=== PATIENT | male | born 2000 | race Caucasian/White ===

== ENCOUNTER 2025-09-20 13:37 | Outpatient (AMB) | payer BC, OTHER, SELFPAY ==
--- NOTE | 2025-09-20 13:38 | AM.OFFWIN_ITS ---
Intake Vital Signs 09/20/25 13:39 Height 5 ft 11 in Weight 181 lb BMI 25.2 BP 120/58 L Blood Pressure Location Lt brachial Position Sitting Pulse 71 Pulse Source Pulse Oximeter Temp 98.1 F Temp Source Oral Pulse Oximetry (%) 98 Oxygen Delivery Method Room Air Intake Visit Reasons: [employer] toe infection?? Intake Note: pt presents with left great toe pain, swelling and redness x4 days Allergies No Known Allergies Allergy (Verified 09/20/25 13:41) Do you need a note to return to daycare/school/sports/work: No HPI HPI Comments History of Present Illness Details History of Present Illness - The patient is a 24 year old individua l presenting with an infected right great toe. - The patient reports cutting a toenail too short and subsequently digging at it, which led to the development of a tender infection. - Prior to the visit, the patient attemp juan home care by soaking the toe, applying peroxide, and using Neosporin. Review of Systems Narrative Review of Systems - Integumentary/Extremities: Reports pain, tenderness, and swelling of the toe. All systems reviewed and are unremarkable except as noted in HPI Physical Exam Exam Exam: Physical Exam General: Cooperative, healthy appearing, comfortable, no acute distress and well developed Orientation: Patient oriented x3 Limitations: No limitations Head: Normal to inspection Ears: Hearing grossly normal bilaterally Nose: Normal External nose present Face and sinus: Normal facial exam Eyes: Appearance normal, both eyes and all related structures Neck: Normal visual inspection and Yes full ROM Respiratory: Normal respiratory effort and able to speak in complete sentences. Skin: No rashes or lesions noted Neuro: Patient oriented x3 Extremities: medial side of nail of right great toe with paronychia, TTP, edema of the area. Vital Signs: Last Vital Signs Temp 98.1 F 09/20/25 13:39 Pulse 71 09/20/25 13:39 BP 120/58 L 09/20/25 13:39 Pulse Ox 98 09/20/25 13:39 Oxygen Delivery Method Room Air 09/20/25 13:39 BMI result Body Mass Index 25.2 Office Procedures AMB I&D Drain Details: Cleaned toe with betadine, using 11 blade, made incision on side of nail with only blood draining, made a second small poke on the area of edema and it again was only draining blood. Applied guaze bandage. [id number] of Hematoma/Fluid All charges added?: Procedure code (CPT) selection complete Assessment & Plan Assessment & Plan (1) Paronychia of great toe, right: Code(s): L03.031 - Cellulitis of right toe Plan: Patient was informed and verbally consented to the use of an ambient scribe for clinic note documentation during this visit. - An incision and drainage was performed on the affected toe. - The procedure yielded primarily blood rather than purulent drainage. - The patient reported some pain relief after the drainage of blood from the area. - Despite the absence of pus, an oral antibiotic was prescribed for seven days to be taken every six hours due to signs of infection and the patient's travel plans. - The patient was instructed to soak the toe in Epsom salt several times a day for the next couple of days. - The patient was advised to squeeze the area to encourage further drainage, which should help alleviate pain. - A tight pressure dressing was applied to manage bleeding, and the patient was advised to keep it on. - The prescription was sent to the [facility] in [place]. Orders: Orders AMB Incision & Drainage Today L03.031 - Cellulitis of right toe Medications: New cephalexin 500 mg PO Q6H 28 caps 0RF Coding Level of Care Code New Pt Level 3 (77815) Diagnoses Paronychia of great toe, right L03.031 CPT Codes I&D Drain - Drain 5: [id number]-Gwoslvli of Hematoma/Fluid ([id number])
[2025-09-20 13:39] VITALS: BP 120/58; PULSE 71; TEMP 36.7; O2SAT 98; BMI 25.2
--- OUTSIDE RECORDS SUMMARY | 2025-09-20 13:40 | XMS_ITS | Encounter Summary ---
Author Organization [facility] Address [address] [place] [address] Phone Care Team Providers Care Director Of Front Office Name Role Phone Bushra Reynolds DO Primary Care Provider [phone] Encounter Details Date Type Department Care Team (Late st Contact Info) Description 05/13/2017 Documentation [facility] [place] [facility] [place] [address] [place], [place] [id number] Family Medicine, Physician [address] [place] [address] Social History Tobacco Use Types Packs/Day Years Used Date Smoking Tobacco: Never Comments:Never smoker Sex and Gender Information Value Date Recorded Sex Assigned at Not on file Legal Sex Male 5:01 PM EDT Gender Identity Male 03/16/2021 10:12 AM EDT Sexual Orientation Straight 05/28/2022 10 :27 AM EDT documented as of this encounter Plan of Treatment Not on file documented as of this encounter Visit Diagnoses Not on filedocumented in this encounter Care Teams Director Of Front Office Relationship Specialty Start Date End Date Bushra Reynolds DO [address] [facility] [place] [address] PCP - General 06/03/17 04/13/23 documented as of this encounter
--- OUTSIDE RECORDS SUMMARY | 2025-09-20 13:40 | XMS_ITS | Encounter Summary ---
Author Organization [facility] Address [address] [place] [address] Phone Care Team Providers Care Director Hardware Name Role Phone Bushra Reynolds DO Primary Care Provider [phone] Encounter Details Date Type Department Care Team (Late st Contact Info) Description 06/09/2017 Conversion Encounter [facility] [place] [address] [place] [address] Social History Tobacco Use Types Packs/Day Years [...] filedocumented in this encounter Care Teams Director Hardware Relationship Specialty Start Date End Date Bushra Reynolds DO [address] [place] [address] PCP - General 06/03/17 04/13/23 documented as of this encounter
--- OUTSIDE RECORDS SUMMARY | 2025-09-20 13:40 | XMS_ITS | Encounter Summary ---
Author Organization [facility] Address [address] [place] [address] Phone Care Team Providers Care Glass Enamel Mixer Name Role Phone Bushra Reynolds DO Primary Care Provider [phone] Encounter Details Date Type Department Care Team (Late st Contact Info) Description 04/28/2017 Documentation [facility] [place] Family Medicine [address] [place], [place] [id number] Family Medicine, Physician [address] [place] [address] Social History Tobacco Use Types Packs/Day Years [...] on filedocumented in this encounter Care Teams Glass Enamel Mixer Relationship Specialty Start Date End Date Bushra Reynolds DO [address] [facility] [address] PCP - General 06/03/17 04/13/23 documented as of this encounter
--- OUTSIDE RECORDS SUMMARY | 2025-09-20 13:40 | XMS_ITS | Clinical Summary ---
Author Organization [facility] Address [address] [place] [address] Phone Care Team Providers Care Clinical Application Specialist Name Role Phone Unavailable Primary Care Provider Unavailabl e Allergies No known active allergies Medications Multiple Vitamins-Mineral s (MULTIVITAMIN ADULT EXTRA C PO) Take by mouth. Active Active Problems No known active problems Resolved Problems Problem Noted Date Diagnosed Date Resolved Date History of COVID-19 03/18/2021 03/18/20 21 Overview (03/18/2021): Cards cleared - had wnl EKG, echo and Leo Immunizations Immunization Administration Dates Next Due DTaP 5 12/31/2005, 3,07/04/2002,05/02,02/28/2002 H1N1 11/01/2009,09/23/2009 HPV Vaccine 9 Valent 06/25/2016,10/01/2015,06/25 Hep A, ped/adol 12/25/2014,05/20/2014 Hep B, ped/adol 07/04/2002,01/31/2002,2001 Hib (PRP-T) 04/03/2003, 2,05/02/2002,02/28 IPV 12/31/2005, 2,05/02/2002,02/28 Influenza Split 09/03/2011 Influenza, injectable, quadr ivalent, preservative free 06/28/2017,06/25/2016,06/25/2015 Influenza, injectable, trivalent 09/23/2009 Influenza, intranasal, trivalent 09/08/2012 MMR 12/31/2005,12/31/2002 Meningococcal B Trumenba 10/12/2019,03/28/2019 Meningococcal Conj (Menactra) MCV4P 06/29/2018,0 03/02/2013 Pneumococcal Conjugate 04/03/2003,2001,05/02/2002,02/28 Tdap 03/02/2013 Varicella 01/17/2008,12/31/2002 Family History Medical History Relation Name Comments No Known Problems Brother 1 Markus Asthma Brother 2 Louis No Known Problems Father Philipp Thyroid disease Mother Jena Relation Name Status Comments Brother 1 Markus Alive Brother: Alive and well, Alive and well Brother 2 Louis Alive Brother: Alive and well, Alive and well Father Philipp Alive Father: Alive a nd well Mother Jena Alive Mother: Alive a nd well Other No family histo ry of Seizure disorder, , No family history of Deafness, Family history of Asthma, No family history of Allergies, Family history of Diabetes mellitus, No family history of Developmental dislocation of hip, No family history of Strabismus, Family history of Hyperlipidemia, No family history of Migraines, Family history of Cancer - breast gm, No family history of Obesity Paternal Grandmother Paterna l grandmother: Cancer -lung Social History Tobacco Use Types Packs/Day Years Used Date Smoking Tobacco: Never Smokeless Tobacco: Never Comments:Never smoker Alcohol Use Standard Drinks/Week Comments Never 0 (1 standard drink = 0.6 oz pur e alcohol) Hunger/Food Answer Date Recorded In the last 12 months, did y ou or your family ever eat less than you felt you should because there wasn't enough money for food? No 05/26/2022 Stable Housing Answer Date Recorded Are you worried that in the next 2 months you may not have stable housing? No 05/26/2022 Transportation Concerns Answer Date Rec orded In the last 12 months, have you or your family ever had to go without healthcare because you didn't have a way to get there? No 05/26/2022 Hazards in Home Answer Date Recorded Think about the place you li ve. Do you have problems with any of the following? Pests (mice or roaches), mold, no/not working smoke detectors, water leaks, no window guards. No 2021 Financing Utilities Answer Date Recorde d In the last 12 months, has t he electric, gas, oil, or water company threatened to shut off your services in your home? No 05/26/2022 Safety at Home Answer Date Recorded Are you or your family worried about feeling saf e in your home? No 05/26/2022 Outside Support Answer Date Recorded Do you feel that you need mo re support from other people or programs to help you care for yourself or your family? No 05/26/2022 Understanding Health Concerns Answer Da te Recorded Do you need help understandi ng your or your child's healthcare needs (diagnosis, medications, plan, etc.)? No 05/26/2022 Financing Health Concerns Answer Date R ecorded In the last 12 months, was t here a time when your child needed to see a doctor or get medications or supplies but could not because of cost? No 05/26/2022 Missing School or Work Answer Date Jose Daniel rded Did you or your child miss s chool or work because of a health problem that could have been avoided? No 05/26/2022 Sex and Gender Information Value Date Recorded Sex Assigned at Not on file Legal Sex Male 5:01 PM EDT Gender Identity Male 03/16/2021 10:12 AM EDT Sexual Orientation Straight 05/28/2022 10 :27 AM EDT Last Filed Vital Signs Vital Sign Reading Time Taken Comments Blood Pressure 122/70 05/28/2022 10:08 AM EDT Pulse 60 05/28/2022 10:08 AM EDT Temperature 36.3 C (97.3 F) 05/28/2022 10:08 AM EDT Respiratory Rate 14 07/08/2017 8:09 AM EDT Oxygen Saturation - - Inhaled Oxygen Concentration - - Weight 75.8 kg (167 lb) 05/28/2022 10:08 AM EDT Height 181.6 cm (5' 11.5 ) 05/28/2022 10:08 AM E DT Body Mass Index 22.97 05/28/2022 10:08 AM EDT Plan of Treatment Health Maintenance Due Date Last Done Comments DTaP,Tdap,and Td Vaccines (7 - Td or Tdap) 03/02/2023 03/02/2013, 12/31/2005, 07/03/2003, Additional history exists Influenza Vaccines (#1) 2025 06/28/20 17, 06/25/2016, 06/25/2015, Additional history exists COVID-19 Vaccine (4 2024-2 6 season) 2025 10/26/2021, 04/09/2021, 03/18/2021 Hepatitis B Vaccines Completed 07/04/2002, 01/31/2002, 2001 HIB Vaccines Completed 04/03/2003, 06/24, 05/02/2002, Additional history exists Pneumococcal Vaccine Completed 04/03/2003, 07/04/2002, 05/02/2002, Additional history exists IPV Vaccines Completed 12/31/2005, 06/2002, 05/02/2002, Additional history exists MMR Vaccines Completed 12/31/2005, 12/31/2002 Varicella Vaccines Completed 01/17/2008, 12/31/2002 Hepatitis A Vaccines Completed 12/25/2014, 05/20/20 14 HPV Vaccines Completed 06/25/2016, 06/2015, 06/25/2015 Meningococcal Vaccine Completed 06/29/2018, 013 Men B Vaccine Completed 10/12/2019, 03/28/2019
--- OUTSIDE RECORDS SUMMARY | 2025-09-20 13:40 | XMS_ITS ---
Author Name [facility] Organization Unknown Encounters Encounter Type Encounter Reason Primary Diagnosis Location Date Ambulatory Encounter for general adult medical examination without abnormal findings Encounter for general adult medical examination without abnormal findings [facility] 06/18/2025 Ambulatory Other specified abnormal findings of blood chemistry Other specified abnormal findings of blood chemistry [facility] 03/15/2024 Care Team Organization Name Specialty Phone Email Start Date End Da te [facility] KATHRIN Primary Care 03/15/2024 [facility] DEREK PINON Primary Care 03/15/2024 [facility] NO PCP Primary Care 11/30/2023
--- OUTSIDE RECORDS SUMMARY | 2025-09-20 13:40 | XMS_ITS | Encounter Summary ---
Author Organization [facility] Address [address] [place] [address] Phone Care Team Providers Care Mold Capper Helper Name Role Phone Bushra Reynolds DO Primary Care Provider [phone] Encounter Details Date Type Department Care Team (Late st Contact Info) Description 09/06/2011 Documentation [facility] [place] [address] [place], [place] [id number] Family Medicine, Physician [address] [place] [address] Social History Tobacco Use Types Packs/Day Years Used Date Smoking Tobacco: Never Assessed Sex and Gender Information Value Date Recorded Sex Assigned at Not on file Legal Sex Male 5:01 PM EDT Gender Identity Male 03/16/2021 10:12 AM EDT Sexual Orientation Straight 05/28/2022 10 :27 AM EDT documented as of this encounter Plan of Treatment Not on file documented as of this encounter Visit Diagnoses Not on filedocumented in this encounter Care Teams Mold Capper Helper Relationship Specialty Start Date End Date Bushra Reynolds DO [address] [facility] [place] [address] PCP - General 06/03/17 04/13/23 documented as of this encounter
== END 2025-09-20 13:59 | disposition home or self-care (01) ==
PROVIDERS: PCP Physician Assistant Medical; Visit Provider Physician Assistant
DX: L03.031 Cellulitis of right toe (principal)

== ENCOUNTER → 2025-09-20 13:37 | Outpatient (BNVA) | payer BC, OTHER, SELFPAY | PROVIDERS: PCP Physician Assistant Medical; Visit Provider Physician Assistant | DX: L03.031 Cellulitis of right toe (principal) | CPT/HCPCS: 10140 ==